=== PATIENT | male | born 1995 | race African-American/Black ===

== ENCOUNTER 2020-07-21 14:48 | Emergency (ER) | payer OTHER ==
[~2020-07-21] VITALS: Ht 180.3 cm; Wt 81.2 kg
[2020-07-21] MEDS ORDERED: FLEXERIL PO (15:59)
[2020-07-21] MEDS ORDERED: NAPROSYN500 M1 PO (15:59)
[2020-07-21 16:25] VITALS: BP 125/87
== END 2020-07-21 16:26 | disposition home or self-care (01) ==
LOC: M.ERS 14:48
DX: S20.212A Contusion of left front wall of thorax, initial encounter (principal); M79.601 Pain in right arm; M79.602 Pain in left arm; V89.2XXA Person injured in unspecified motor-vehicle accident, traffic, initial encounter; Y93.I9 Activity, other involving external motion; Y92.488 Other paved roadways as the place of occurrence of the external cause; Y99.8 Other external cause status